=== PATIENT | female | born 1970 | race Caucasian/White ===

== ENCOUNTER 2021-04-07 15:35 | Emergency (ER) | payer BC ==
[~2021-04-07 15:35] MED LIST: BENADRYL 25MG C25 MG PO; COZAAR100 MG PO; CYMBALTA60 MG PO; HYDROCHLOROTHIA25 MG PO; LOPRESSOR100 MG PO; MELOXICAM PO; NAPROSYN500 MG PO; NORCO 7.5-3251 EACH PO; NORVASC 5 MG TAB5 MG PO; PREDNISONE50 MG PO; PROTONIX40 MG PO; PYRIDIUM200 MG PO; ZANTAC150 MG PO
[2021-04-07 17:07] LABS: HEMOGLOBIN 13.3 gm/dl (12.3-15.3); RED BLOOD COUNT 4.78 M/UL (4.00-5.10); WHITE BLOOD COUNT 8.7 K/UL (4.5-11.0)
[2021-04-07 17:23] LABS: BUN/CREATININE RATIO 14 (0-10)
[2021-04-07] MEDS ORDERED: ZOFRAN ODT 4 MG4 MG SL (20:09)
== END 2021-04-07 20:17 | disposition home or self-care (01) ==
LOC: ER1 15:35
PROVIDERS: Physician Assistant
DX: R10.9 Unspecified abdominal pain (principal); I10 Essential (primary) hypertension; Z90.49 Acquired absence of other specified parts of digestive tract; Z90.710 Acquired absence of both cervix and uterus; Z88.1 Allergy status to other antibiotic agents
CPT/HCPCS: 80053; 81001; 85025; 99284

== ENCOUNTER → 2022-02-24 | Outpatient (CLI) | payer BC ==
[~2022-02-24] MED LIST changes: +ZOFRAN ODT 4 MG4 MG SL
== END ==
LOC: KOH-I 14:34
DX: M54.9 Dorsalgia, unspecified (principal); M47.814 Spondylosis without myelopathy or radiculopathy, thoracic region
CPT/HCPCS: 72070